=== PATIENT | female | born 1985 | race American Indian/Alaskan Native ===

== ENCOUNTER 2020-10-01 15:52 | Outpatient (CLI) | payer OTHER ==
[2020-10-01 16:46] VITALS: BP 125/72
== END 2020-10-01 17:27 | disposition home or self-care (01) ==
LOC: TRG 15:52 → APU 15:52 → TRG 17:27
PROVIDERS: ATTEND Obstetrics & Gynecology
DX: Z34.93 Encounter for supervision of normal pregnancy, unspecified, third trimester (principal); Z3A.39 39 weeks gestation of pregnancy
CPT/HCPCS: 59025

== ENCOUNTER 2020-10-04 16:38 | Outpatient (CLI) | payer OTHER ==
[2020-10-04 18:17] VITALS: BP 126/83
--- NOTE | 2020-10-04 20:45 | Ultrasound Report ---
ULTRASOUND BIOPHYSICAL PROFILE INDICATION: well being. COMPARISON: None available. FINDINGS: BREATHING MOVEMENT = 2 GROSS BODY MOVEMENT = 2 TONE = 2 QUALITATIVE AMNIOTIC FLUID VOLUME = 2 TOTAL BIOPHYSICAL SCORE = 12/30 AMNIOTIC FLUID INDEX (cm) = 13.7 PRESENTATION: Cephalic. HEART RATE (beats per minute): 123 IMPRESSION: 1. biophysical profile = 12/30 Signer Name: Navi Morales MD Signed: 10/04/2020 8:40 PM Workstation Name: [id number]
--- NOTE | 2020-10-05 07:17 | Ultrasound Report ---
ULTRASOUND BIOPHYSICAL PROFILE INDICATION: well being. COMPARISON: None available. FINDINGS: BREATHING MOVEMENT = 2 GROSS BODY MOVEMENT = 2 TONE = 2 QUALITATIVE AMNIOTIC FLUID VOLUME = 2 TOTAL BIOPHYSICAL SCORE = 8/8 IMPRESSION: 1. biophysical profile = 12/30 Signer Name: Cade Fontenot MD Signed: 10/05/2020 7:13 AM Workstation Name: [id number]
== END 2020-10-04 20:20 | disposition home or self-care (01) ==
LOC: TRG 16:38 → APU 16:41 → TRG 20:20
DX: Z34.93 Encounter for supervision of normal pregnancy, unspecified, third trimester (principal); Z3A.40 40 weeks gestation of pregnancy
CPT/HCPCS: 59025; 76815; 76816; 76819

== ENCOUNTER 2020-10-10 21:17 | Inpatient (IN) | payer OTHER ==
[2020-10-10] MEDS ORDERED: ACETAMINOPHEN 325 MG TAB PO PRN (23:42)
[2020-10-10] MEDS ORDERED: miSOPROStol 200 MCG TAB PR PRN (23:42)
[2020-10-10] MEDS ORDERED: MINERAL OIL 30 ML ORAL LIQD PO PRN (23:42)
[2020-10-10] MEDS ORDERED: AMPICILLIN/NS 2 GM/100 ML 2 GM/100 ML BAG IV ONE (23:42)
[2020-10-10] MEDS ORDERED: BUTORPHANOL 2 MG/1 ML INJ IV PRN (23:42)
[2020-10-10] MEDS ORDERED: ePHEDrine SULFATE 50 MG/1 ML INJ IV PRN (23:42)
[2020-10-10] MEDS ORDERED: ONDANSETRON 4 MG/2 ML INJ IV PRN (23:42)
[2020-10-10] MEDS ORDERED: TERBUTALINE 1 MG/1 ML INJ SUB-Q PRN (23:42)
[2020-10-10] MEDS ORDERED: LIDOCAINE (2%) 20 MG/1 ML VIAL 20 ML MDV INFILTRATI ONE (23:42)
[2020-10-10] MEDS ORDERED: NALOXONE 0.4 MG/1 ML INJ IV PRN (23:42)
[2020-10-10] MEDS ORDERED: OXYTOCIN DRIP 30 UNITS/500 ML BAG IV SCH (23:45)
--- NOTE | 2020-10-11 00:04 | History and Physical Report ---
History of Present Illness Date of examination: 10/10/20 Date of admission: 10/10/2020 Chief complaint: Presents for a scheduled Postdates Induction of Labor History of present illness: Early entry to care, co-managed with [facility], course complicated by a Hx of Epilepsy (non-compliant with Neurology Consult); Maternal Obesity; a UTI (treated with Macrobid); Trichomonas (treated with Negative RALPH); and Vitamin D Deficiency (PO Supplementation). Past History Past Medical History: asthma, neurologic (Epilepsy), seizure Past Surgical History: [employer]/uterine surgery (Elective ) [employer] History: trichomonas Family/Genetic History: diabetes (MGF and PGF), hypertension (Father), cancer (Breast CA: Aunt) Social history: no significant social history, single - Obstetrical History Expected Date of Delivery: 10/04/20 Actual Gestation: 40 Week(s) 6 Day(s) : 6 Para: 1 Hx # Term Pregnancies: 1 Spontaneous Abortions: 6 Induced : 1 Number of Living Children: 1 #1 Gender: Female year: 4,[birth year] Birthweight: 2.92 kg Method of Delivery: Vaginal Gestational age at delivery: 42 Complications: none Medications and Allergies Allergies Allergy/AdvReac Type Severity Reaction Status Date / Time No Known Allergies Allergy Verified 10/04/20 17:55 Home Medications Medication Instructions Recorded Confirmed Last Taken Type No Known Home Medications [No 10/10/20 10/10/20 Unknown History Reported Home Medications] Active Meds: Active Medications Acetaminophen (Acetaminophen 325 Mg Tab) 650 mg PO Q4H PRN PRN Reason: Pain, Mild (1-3) Butorphanol Tartrate (Butorphanol 2 Mg/1 Ml Inj) 2 mg IV Q2H PRN PRN Reason: Pain , Severe (7-10) Ephedrine Sulfate (Ephedrine Sulfate 50 Mg/1 Ml Inj) 10 mg IV Q2M PRN PRN Reason: Hypotension Oxytocin/Sodium Chloride (Pitocin/Ns 30 Unit/500ml) 30 units in 500 mls @ 4 mls/hr IV TITR ALOK; Protocol Lactated Ringer's (Lactated Ringers) 1,000 mls @ 125 mls/hr IV DIRECT ALOK Oxytocin/Sodium Chloride (Pitocin/Ns 30 Unit/500ml) 30 units in 500 mls @ 40 mls/hr IV TITR ALOK; Protocol Ampicillin Sodium (Ampicillin/Ns 2 Gm/100 Ml) 2 gm in 100 mls @ 100 mls/hr IV ONCE ONE; Protocol Stop: 10/11/20 00:41 Ampicillin Sodium (Ampicillin/Ns 1 Gm/50 Ml) 1 gm in 50 mls @ 100 mls/hr IV Q4H [facility]; Protocol Lidocaine (Lidocaine (2%) 20 Mg/1 Ml Vial 20 Ml Mdv) 20 ml INFILTRATI ONCE ONE Stop: 10/10/20 23:43 Mineral Oil (Mineral Oil 30 Ml Oral Liqd) 30 ml PO QHS PRN PRN Reason: Constipation Misoprostol (Misoprostol 200 Mcg Tab) 800 mcg MI ONCE PRN PRN Reason: Uterine Bleeding Naloxone HCl (Naloxone 0.4 Mg/1 Ml Inj) 0.1 mg IV Q2MIN PRN PRN Reason: Res Rate </= 8 or 02 SAT < 92% Ondansetron HCl (Ondansetron 4 Mg/2 Ml Inj) 4 mg IV Q8H PRN PRN Reason: Nausea And Vomiting Terbutaline Sulfate (Terbutaline 1 Mg/1 Ml Inj) 0.25 mg SUB-Q ONCE PRN PRN Reason: Hyperstimulation/Hypertonicity Review of Systems All systems: negative - Vital Signs Vital signs: Vital Signs Pulse BP 90 115/74 10/10/20 22:33 10/10/20 22:33 Temp Pulse Resp BP Pulse Ox 99.1 F 84 18 133/72 100 10/10/20 22:47 10/10/20 23:44 10/10/20 22:47 10/10/20 23:13 10/10/20 23:44 - Physical Exam Breasts: Positive: normal Cardiovascular: Regular rate Lungs: Positive: Clear to auscultation, Normal air movement Abdomen: Positive: normal appearance, soft, normal bowel sounds Genitourinary (Female): Positive: normal external genitalia, normal perenium Vagina: Positive: normal moisture Uterus: Positive: enlarged Anus/Rectum: Positive: normal perianal skin Extremities: Positive: edema (+2 bilateral pedal) - Obstetrical FHR: category 1 Uterine Contraction Monitor Mode: External Cervical Dilatation: 2 (vtx; Intact) Cervical Effacement Percentage: 40 station: -3 Uterine Contraction Pattern: Irregular Uterine Tone Measurement Phase: Resting Uterine Contraction Intensity: Mild Results All other labs normal. Assessment and Plan A: IUP @ 40 6/7 Weeks Category I Tracing Epilepsy Maternal Obesity GBS Negative P: Admit Per Routine Orders Low Dose Pitocin Induction Cook's Cervical Ripening Balloon Placed
[2020-10-11 00:27] LABS: Hematocrit 32.9 % (30.3-42.9); Hemoglobin 10.9 gm/dl (10.1-14.3); Mean Corpuscular HGB Conc 33 % (30-34); Mean Corpuscular Volume 88 fl (79-97); Platelet Count 218 K/mm3 (140-440); Red Blood Count 3.72 M/mm3 (3.65-5.03)
[2020-10-11] MEDS: LACTATED RINGERS 1,000 ML IV SCH ×3 (00:30→15:26)
[2020-10-11] MEDS: OXYTOCIN DRIP 30 UNITS/500 ML BAG IV SCH ×2 (00:30→08:03)
[2020-10-11] MEDS ORDERED: BUTORPHANOL 2 MG/1 ML INJ IV PRN (01:35)
[2020-10-11] MEDS ORDERED: AMPICILLIN/NS 1 GM/50 ML 1 GM/50 ML BAG IV SCH (04:00)
[2020-10-11] MEDS ORDERED: NALOXONE 2 MG/2 ML INJ IV PRN (06:21)
[2020-10-11] MEDS ORDERED: ePHEDrine SULFATE 50 MG/1 ML INJ IV PRN (06:21)
--- NOTE | 2020-10-11 06:21 | Anesthesia Consultation ---
Anesthesia Consult and Med Hx Date of service: 10/11/20 - Airway Anesthetic Teeth Evaluation: Good ROM Head & Neck: Adequate Mental/Hyoid Distance: Adequate Mallampati Class: Class II Intubation Access Assessment: Probably Good - Pulmonary Exam CTA: Yes - Cardiac Exam Cardiac Exam: RRR - Pre-Operative Health Status ASA Pre-Surgery Classification: ASA3 Proposed Anesthetic Plan: Epidural - Pulmonary Hx Asthma: Yes - Cardiovascular System Hx Hypertension: No - Central Nervous System Hx Seizures: Yes Hx Psychiatric Problems: No - Endocrine Hx Renal Disease: No Hx Hypothyroidism: No Hx Hyperthyroidism: No - Hematic Hx Anemia: No Hx Sickle Cell Disease: No - Other Systems Hx Alcohol Use: Yes Hx Obesity: Yes
--- NOTE | 2020-10-11 06:47 | Progress Note ---
Labor Epidural - Labor Epidural Start Time: 06:29 Stop Time: 06:36 Performed by:: CHELITA DIANE Procedure: Patient is requesting epidural for labor pain. H&P, and labs reviewed. Procedure explained, questions answered, consent obtained. Patient in sitting position with blood pressure cuff and pulse ox on and working. Timeout performed immediately before start of procedure. Sterile chlorahexadine 0.5% prep/drape. 3 mL 1% lidocaine skin wheal at L[3]-L[4]. 18-gauge Samanta [place] epidural needle advanced to [id number] with saline at 9 cm. 27-gauge spinal needle advanced until clear, free-flowing CSF. Intrathecal dexmedetomidine [5] mcg administered and needle removed. Epidural catheter advanced to 15 cm, negative aspiration for blood and csf, negative test dose 3 ml 1.5% lidocaine with epinephrine. Sterile steri-strips and tegaderm applied, followed by tape reinforcement. Patient tolerated procedure well.
[2020-10-11] MEDS: fentaNYL-BUPIV 2 MCG/ML-0.125% 200 MCG/100 ML BAG EPIDURAL SCH ×2 (07:46→15:26)
--- NOTE | 2020-10-11 09:33 | Progress Note ---
Assessment and Plan A: IUP@ 41 wks Hx of Epilespy P: Continue monitoring Continue Pitocin per protocol Seizure prec Anticipate Subjective - Subjective Date of service: 10/11/20 Principal diagnosis: IUP@ term Patient reports: movement normal Objective - Vital Signs Vital Signs: Vital Signs - 12hr 10/10/20 10/10/20 10/10/20 22:33 22:47 22:48 Temperature 99.1 F Pulse Rate 90 90 87 Respiratory 18 Rate Blood Pressure 115/74 Blood Pressure 115/74 [Left] O2 Sat by Pulse 99 98 Oximetry 10/10/20 10/10/20 10/10/20 22:53 22:58 23:03 Temperature Pulse Rate 86 81 82 Respiratory Rate Blood Pressure Blood Pressure [Left] O2 Sat by Pulse 99 99 100 Oximetry 10/10/20 10/10/20 10/10/20 23:08 23:13 23:18 Temperature Pulse Rate 84 97 H 89 Respiratory Rate Blood Pressure 133/72 Blood Pressure [Left] O2 Sat by Pulse 99 99 99 Oximetry 10/10/20 10/10/20 10/10/20 23:23 23:28 23:33 Temperature Pulse Rate 102 H 102 H 82 Respiratory Rate Blood Pressure Blood Pressure [Left] O2 Sat by Pulse 98 97 98 Oximetry 10/10/20 10/10/20 10/10/20 23:35 23:39 23:44 Temperature Pulse Rate 60 68 84 Respiratory Rate Blood Pressure Blood Pressure [Left] O2 Sat by Pulse 85 50 L 100 Oximetry 10/10/20 10/10/20 10/10/20 23:49 23:54 23:59 Temperature Pulse Rate 90 85 86 Respiratory Rate Blood Pressure Blood Pressure [Left] O2 Sat by Pulse 99 100 100 Oximetry 10/11/20 10/11/20 10/11/20 00:04 00:09 00:14 Temperature Pulse Rate 80 78 83 Respiratory Rate Blood Pressure Blood Pressure [Left] O2 Sat by Pulse 100 100 100 Oximetry 10/11/20 10/11/20 10/11/20 00:19 00:24 00:29 Temperature Pulse Rate 82 82 83 Respiratory Rate Blood Pressure Blood Pressure [Left] O2 Sat by Pulse 99 100 100 Oximetry 10/11/20 10/11/20 10/11/20 00:34 00:39 00:44 Temperature Pulse Rate 78 79 79 Respiratory Rate Blood Pressure Blood Pressure [Left] O2 Sat by Pulse 100 100 100 Oximetry 10/11/20 10/11/20 10/11/20 00:47 00:50 00:55 Temperature Pulse Rate 71 82 88 Respiratory Rate Blood Pressure Blood Pressure [Left] O2 Sat by Pulse 94 98 97 Oximetry 10/11/20 10/11/20 10/11/20 01:00 01:05 01:10 Temperature Pulse Rate 83 87 80 Respiratory Rate Blood Pressure Blood Pressure [Left] O2 Sat by Pulse 100 100 98 Oximetry 10/11/20 10/11/20 10/11/20 01:15 01:20 01:25 Temperature Pulse Rate 89 80 75 Respiratory Rate Blood Pressure Blood Pressure [Left] O2 Sat by Pulse 97 99 98 Oximetry 10/11/20 10/11/20 10/11/20 01:30 01:31 01:35 Temperature Pulse Rate 91 H 83 85 Respiratory Rate Blood Pressure 129/70 Blood Pressure [Left] O2 Sat by Pulse 97 99 Oximetry 10/11/20 10/11/20 10/11/20 01:40 01:45 01:50 Temperature Pulse Rate 82 90 100 H Respiratory Rate Blood Pressure Blood Pressure [Left] O2 Sat by Pulse 97 99 99 Oximetry 10/11/20 10/11/20 10/11/20 01:55 02:00 02:05 Temperature Pulse Rate 94 H 85 95 H Respiratory Rate Blood Pressure Blood Pressure [Left] O2 Sat by Pulse 95 96 95 Oximetry 10/11/20 10/11/20 10/11/20 02:06 02:10 02:15 Temperature Pulse Rate 96 H 86 84 Respiratory Rate Blood Pressure Blood Pressure [Left] O2 Sat by Pulse 94 95 96 Oximetry 10/11/20 10/11/20 10/11/20 02:20 02:25 02:30 Temperature Pulse Rate 89 89 103 H Respiratory Rate Blood Pressure Blood Pressure [Left] O2 Sat by Pulse 96 95 96 Oximetry 10/11/20 10/11/20 10/11/20 02:32 02:35 02:40 Temperature Pulse Rate 93 H 84 95 H Respiratory Rate Blood Pressure 132/73 Blood Pressure [Left] O2 Sat by Pulse 98 97 Oximetry 10/11/20 10/11/20 10/11/20 02:45 02:50 02:55 Temperature Pulse Rate 81 89 94 H Respiratory Rate Blood Pressure Blood Pressure [Left] O2 Sat by Pulse 98 100 98 Oximetry 05/20/21 05/20/21 05/20/21 03:00 03:05 03:10 Temperature Pulse Rate 88 91 H 90 Respiratory Rate Blood Pressure Blood Pressure [Left] O2 Sat by Pulse 99 97 97 Oximetry 10/11/20 10/11/20 10/11/20 03:15 03:20 03:25 Temperature Pulse Rate 90 93 H 92 H Respiratory Rate Blood Pressure Blood Pressure [Left] O2 Sat by Pulse 99 98 98 Oximetry 10/11/20 10/11/20 10/11/20 03:30 03:32 03:35 Temperature Pulse Rate 92 H 93 H 97 H Respiratory Rate Blood Pressure 113/55 Blood Pressure [Left] O2 Sat by Pulse 100 98 Oximetry 10/11/20 10/11/20 10/11/20 03:59 04:04 04:09 Temperature Pulse Rate 94 H 105 H 103 H Respiratory Rate Blood Pressure Blood Pressure [Left] O2 Sat by Pulse 98 98 97 Oximetry 10/11/20 10/11/20 10/11/20 04:14 04:19 04:24 Temperature Pulse Rate 98 H 95 H 83 Respiratory Rate Blood Pressure Blood Pressure [Left] O2 Sat by Pulse 98 98 98 Oximetry 10/11/20 10/11/20 10/11/20 04:29 04:32 04:34 Temperature Pulse Rate 93 H 97 H 98 H Respiratory Rate Blood Pressure 110/65 Blood Pressure [Left] O2 Sat by Pulse 97 97 Oximetry 10/11/20 10/11/20 10/11/20 04:39 04:44 04:49 Temperature Pulse Rate 91 H 87 92 H Respiratory Rate Blood Pressure Blood Pressure [Left] O2 Sat by Pulse 98 98 96 Oximetry 10/11/20 10/11/20 10/11/20 04:50 04:54 04:59 Temperature Pulse Rate 95 H 101 H 103 H Respiratory Rate Blood Pressure Blood Pressure [Left] O2 Sat by Pulse 90 100 100 Oximetry 10/11/20 10/11/20 10/11/20 05:05 05:10 05:15 Temperature Pulse Rate 48 L 115 H 103 H Respiratory Rate Blood Pressure Blood Pressure [Left] O2 Sat by Pulse 100 98 99 Oximetry 10/11/20 10/11/20 10/11/20 05:18 05:20 05:25 Temperature Pulse Rate 56 L 106 H 102 H Respiratory Rate Blood Pressure Blood Pressure [Left] O2 Sat by Pulse 87 100 100 Oximetry 10/11/20 10/11/20 10/11/20 05:30 05:35 05:39 Temperature Pulse Rate 111 H 107 H 119 H Respiratory Rate Blood Pressure Blood Pressure [Left] O2 Sat by Pulse 100 100 93 Oximetry 10/11/20 10/11/20 10/11/20 05:40 05:53 05:58 Temperature Pulse Rate 122 H 99 H 98 H Respiratory Rate Blood Pressure Blood Pressure [Left] O2 Sat by Pulse 99 100 98 Oximetry 10/11/20 10/11/20 10/11/20 06:03 06:08 06:11 Temperature Pulse Rate 98 H 101 H 105 H Respiratory Rate Blood Pressure 116/64 Blood Pressure [Left] O2 Sat by Pulse 99 98 Oximetry 10/11/20 10/11/20 10/11/20 06:12 06:13 06:18 Temperature 98.0 F Pulse Rate 98 H 101 H 94 H Respiratory 14 Rate Blood Pressure Blood Pressure 116/64 [Left] O2 Sat by Pulse 99 97 99 Oximetry 10/11/20 10/11/20 10/11/20 06:23 06:28 06:31 Temperature Pulse Rate 99 H 111 H 100 H Respiratory Rate Blood Pressure 109/56 Blood Pressure [Left] O2 Sat by Pulse 98 98 Oximetry 10/11/20 10/11/20 10/11/20 06:33 06:38 06:41 Temperature Pulse Rate 98 H 96 H 102 H Respiratory Rate Blood Pressure 111/61 Blood Pressure [Left] O2 Sat by Pulse 99 100 Oximetry 10/11/20 10/11/20 10/11/20 06:43 06:44 06:46 Temperature Pulse Rate 97 H 95 H 86 Respiratory Rate Blood Pressure 87/47 86/49 Blood Pressure [Left] O2 Sat by Pulse 98 Oximetry 10/11/20 10/11/20 10/11/20 06:48 06:49 06:50 Temperature Pulse Rate 96 H 107 H 122 H Respiratory Rate Blood Pressure 79/43 83/50 86/60 Blood Pressure [Left] O2 Sat by Pulse 100 Oximetry 10/11/20 10/11/20 10/11/20 06:52 06:53 06:54 Temperature Pulse Rate 87 111 H 117 H Respiratory Rate Blood Pressure 140/76 111/55 Blood Pressure [Left] O2 Sat by Pulse 100 Oximetry 10/11/20 10/11/20 10/11/20 06:56 06:58 07:00 Temperature Pulse Rate 121 H 106 H 102 H Respiratory Rate Blood Pressure 97/51 88/53 80/41 Blood Pressure [Left] O2 Sat by Pulse 98 Oximetry 10/11/20 10/11/20 10/11/20 07:03 07:07 07:08 Temperature Pulse Rate 86 101 H Respiratory Rate Blood Pressure 105/57 166/90 Blood Pressure [Left] O2 Sat by Pulse 96 98 Oximetry 10/11/20 10/11/20 10/11/20 07:09 07:13 07:18 Temperature Pulse Rate 107 H 77 77 Respiratory Rate Blood Pressure 167/77 Blood Pressure [Left] O2 Sat by Pulse 98 97 Oximetry 10/11/20 10/11/20 10/11/20 07:22 07:23 07:24 Temperature 98.1 F Pulse Rate 75 98 H 107 H Respiratory 18 Rate Blood Pressure 134/67 Blood Pressure 134/67 [Left] O2 Sat by Pulse 97 96 Oximetry 10/11/20 10/11/20 10/11/20 07:28 07:30 07:33 Temperature Pulse Rate 102 H 68 84 Respiratory Rate Blood Pressure Blood Pressure [Left] O2 Sat by Pulse 96 93 98 Oximetry 10/11/20 10/11/20 10/11/20 07:38 07:40 07:43 Temperature Pulse Rate 81 92 H 91 H Respiratory Rate Blood Pressure 120/63 Blood Pressure [Left] O2 Sat by Pulse 98 97 Oximetry 10/11/20 10/11/20 10/11/20 07:48 07:50 07:53 Temperature Pulse Rate 98 H 96 H 89 Respiratory Rate Blood Pressure 107/56 Blood Pressure [Left] O2 Sat by Pulse 98 97 Oximetry 10/11/20 10/11/20 10/11/20 07:58 08:00 08:03 Temperature Pulse Rate 80 78 93 H Respiratory Rate Blood Pressure 116/60 Blood Pressure [Left] O2 Sat by Pulse 98 98 Oximetry 10/11/20 10/11/20 10/11/20 08:08 08:13 08:18 Temperature Pulse Rate 72 92 H 88 Respiratory Rate Blood Pressure Blood Pressure [Left] O2 Sat by Pulse 99 97 98 Oximetry 10/11/20 10/11/20 10/11/20 08:23 08:28 08:33 Temperature Pulse Rate 89 93 H 76 Respiratory Rate Blood Pressure 100/58 Blood Pressure [Left] O2 Sat by Pulse 98 97 98 Oximetry 10/11/20 10/11/20 10/11/20 08:38 08:39 08:43 Temperature Pulse Rate 74 76 75 Respiratory Rate Blood Pressure 113/67 Blood Pressure [Left] O2 Sat by Pulse 99 97 Oximetry 10/11/20 10/11/20 10/11/20 08:48 08:53 08:58 Temperature Pulse Rate 89 81 75 Respiratory Rate Blood Pressure 107/59 Blood Pressure [Left] O2 Sat by Pulse 97 97 99 Oximetry 10/11/20 10/11/20 10/11/20 09:03 09:08 09:13 Temperature Pulse Rate 85 102 H 86 Respiratory Rate Blood Pressure 100/55 Blood Pressure [Left] O2 Sat by Pulse 99 99 99 Oximetry 10/11/20 10/11/20 09:18 09:23 Temperature Pulse Rate 81 76 Respiratory Rate Blood Pressure 101/59 Blood Pressure [Left] O2 Sat by Pulse 99 99 Oximetry - Exam Breasts: normal Abdomen: Present: normal appearance, soft, normal bowel sounds Vulva: both: normal Uterus: Present: normal FHR: auscultation normal, category 1 Uterine Contraction Monitor Mode: External Cervical Dilatation: 6 (per urse) Cervical Effacement Percentage: 70 (per nurse) station: 3 Uterine Contraction Pattern: Irregular Uterine Tone Measurement Phase: Resting Uterine Contraction Intensity: Mild Extremities: normal - Labs Labs: Abnormal Labs 10/11/20 00:08 WBC 11.3 H Laboratory Results - last 24 hr 10/11/20 10/11/20 00:08 01:09 WBC 11.3 H RBC 3.72 Hgb 10.9 Hct 32.9 MCV 88 MCH 29 MCHC 33 RDW 15.0 Plt Count 218 Blood Type A POSITIVE Antibody Screen Negative
--- NOTE | 2020-10-11 09:57 | Progress Note ---
Assessment and Plan A: IUP @ 41 Weeks Category I Tracing Active Labor Epilepsy Maternal Obesity GBS Negative P: AROM Continue Pitocin Augmentation Internals x 2 Subjective - Subjective Date of service: 10/11/20 Principal diagnosis: IUP@ term Interval history: Early entry to care, co-managed with [facility], course complicated by a Hx of Epilepsy (non-compliant with Neurology Consult); Maternal Obesity; a UTI (treated with Macrobid); Trichomonas (treated with Negative RALPH); and Vitamin D Deficiency (PO Supplementation). Patient reports: movement normal, other (Resting well under epidural anesthesia) Objective - Vital Signs Vital Signs: Vital Signs - 12hr 10/10/20 10/10/20 10/10/20 22:33 22:47 22:48 Temperature 99.1 F Pulse Rate 90 90 87 Respiratory 18 Rate Blood Pressure 115/74 Blood Pressure 115/74 [Left] O2 Sat by Pulse 99 98 Oximetry 10/10/20 10/10/20 10/10/20 22:53 22:58 23:03 Temperature Pulse Rate 86 81 82 Respiratory Rate Blood Pressure Blood Pressure [Left] O2 Sat by Pulse 99 99 100 Oximetry 10/10/20 10/10/20 10/10/20 23:08 23:13 23:18 Temperature Pulse Rate 84 97 H 89 Respiratory Rate Blood Pressure 133/72 Blood Pressure [Left] O2 Sat by Pulse 99 99 99 Oximetry 10/10/20 10/10/20 10/10/20 23:23 23:28 23:33 Temperature Pulse Rate 102 H 102 H 82 Respiratory Rate Blood Pressure Blood Pressure [Left] O2 Sat by Pulse 98 97 98 Oximetry 10/10/20 10/10/20 10/10/20 23:35 23:39 23:44 Temperature Pulse Rate 60 68 84 Respiratory Rate Blood Pressure Blood Pressure [Left] O2 Sat by Pulse 85 50 L 100 Oximetry 10/10/20 10/10/20 10/10/20 23:49 23:54 23:59 Temperature Pulse Rate 90 85 86 Respiratory Rate Blood Pressure Blood Pressure [Left] O2 Sat by Pulse 99 100 100 Oximetry 10/11/20 10/11/20 10/11/20 00:04 00:09 00:14 Temperature Pulse Rate 80 78 83 Respiratory Rate Blood Pressure Blood Pressure [Left] O2 Sat by Pulse 100 100 100 Oximetry 10/11/20 10/11/20 10/11/20 00:19 00:24 00:29 Temperature Pulse Rate 82 82 83 Respiratory Rate Blood Pressure Blood Pressure [Left] O2 Sat by Pulse 99 100 100 Oximetry 10/11/20 10/11/20 10/11/20 00:34 00:39 00:44 Temperature Pulse Rate 78 79 79 Respiratory Rate Blood Pressure Blood Pressure [Left] O2 Sat by Pulse 100 100 100 Oximetry 10/11/20 10/11/20 10/11/20 00:47 00:50 00:55 Temperature Pulse Rate 71 82 88 Respiratory Rate Blood Pressure Blood Pressure [Left] O2 Sat by Pulse 94 98 97 Oximetry 10/11/20 10/11/20 10/11/20 01:00 01:05 01:10 Temperature Pulse Rate 83 87 80 Respiratory Rate Blood Pressure Blood Pressure [Left] O2 Sat by Pulse 100 100 98 Oximetry 10/11/20 10/11/20 10/11/20 01:15 01:20 01:25 Temperature Pulse Rate 89 80 75 Respiratory Rate Blood Pressure Blood Pressure [Left] O2 Sat by Pulse 97 99 98 Oximetry 10/11/20 10/11/20 10/11/20 01:30 01:31 01:35 Temperature Pulse Rate 91 H 83 85 Respiratory Rate Blood Pressure 129/70 Blood Pressure [Left] O2 Sat by Pulse 97 99 Oximetry 10/11/20 10/11/20 10/11/20 01:40 01:45 01:50 Temperature Pulse Rate 82 90 100 H Respiratory Rate Blood Pressure Blood Pressure [Left] O2 Sat by Pulse 97 99 99 Oximetry 10/11/20 10/11/20 10/11/20 01:55 02:00 02:05 Temperature Pulse Rate 94 H 85 95 H Respiratory Rate Blood Pressure Blood Pressure [Left] O2 Sat by Pulse 95 96 95 Oximetry 10/11/20 10/11/20 10/11/20 02:06 02:10 02:15 Temperature Pulse Rate 96 H 86 84 Respiratory Rate Blood Pressure Blood Pressure [Left] O2 Sat by Pulse 94 95 96 Oximetry 10/11/20 10/11/20 10/11/20 02:20 02:25 02:30 Temperature Pulse Rate 89 89 103 H Respiratory Rate Blood Pressure Blood Pressure [Left] O2 Sat by Pulse 96 95 96 Oximetry 10/11/20 10/11/20 10/11/20 02:32 02:35 02:40 Temperature Pulse Rate 93 H 84 95 H Respiratory Rate Blood Pressure 132/73 Blood Pressure [Left] O2 Sat by Pulse 98 97 Oximetry 10/11/20 10/11/20 10/11/20 02:45 02:50 02:55 Temperature Pulse Rate 81 89 94 H Respiratory Rate Blood Pressure Blood Pressure [Left] O2 Sat by Pulse 98 100 98 Oximetry 10/11/20 10/11/20 10/11/20 03:00 03:05 03:10 Temperature Pulse Rate 88 91 H 90 Respiratory Rate Blood Pressure Blood Pressure [Left] O2 Sat by Pulse 99 97 97 Oximetry 10/11/20 10/11/20 10/11/20 03:15 03:20 03:25 Temperature Pulse Rate 90 93 H 92 H Respiratory Rate Blood Pressure Blood Pressure [Left] O2 Sat by Pulse 99 98 98 Oximetry 10/11/20 10/11/20 10/11/20 03:30 03:32 03:35 Temperature Pulse Rate 92 H 93 H 97 H Respiratory Rate Blood Pressure 113/55 Blood Pressure [Left] O2 Sat by Pulse 100 98 Oximetry 10/11/20 10/11/20 10/11/20 03:59 04:04 04:09 Temperature Pulse Rate 94 H 105 H 103 H Respiratory Rate Blood Pressure Blood Pressure [Left] O2 Sat by Pulse 98 98 97 Oximetry 10/11/20 10/11/20 10/11/20 04:14 04:19 04:24 Temperature Pulse Rate 98 H 95 H 83 Respiratory Rate Blood Pressure Blood Pressure [Left] O2 Sat by Pulse 98 98 98 Oximetry 10/11/20 10/11/20 10/11/20 04:29 04:32 04:34 Temperature Pulse Rate 93 H 97 H 98 H Respiratory Rate Blood Pressure 110/65 Blood Pressure [Left] O2 Sat by Pulse 97 97 Oximetry 10/11/20 10/11/20 10/11/20 04:39 04:44 04:49 Temperature Pulse Rate 91 H 87 92 H Respiratory Rate Blood Pressure Blood Pressure [Left] O2 Sat by Pulse 98 98 96 Oximetry 10/11/20 10/11/20 10/11/20 04:50 04:54 04:59 Temperature Pulse Rate 95 H 101 H 103 H Respiratory Rate Blood Pressure Blood Pressure [Left] O2 Sat by Pulse 90 100 100 Oximetry 10/11/20 10/11/20 10/11/20 05:05 05:10 05:15 Temperature Pulse Rate 48 L 115 H 103 H Respiratory Rate Blood Pressure Blood Pressure [Left] O2 Sat by Pulse 100 98 99 Oximetry 10/11/20 10/11/20 10/11/20 05:18 05:20 05:25 Temperature Pulse Rate 56 L 106 H 102 H Respiratory Rate Blood Pressure Blood Pressure [Left] O2 Sat by Pulse 87 100 100 Oximetry 10/11/20 10/11/20 10/11/20 05:30 05:35 05:39 Temperature Pulse Rate 111 H 107 H 119 H Respiratory Rate Blood Pressure Blood Pressure [Left] O2 Sat by Pulse 100 100 93 Oximetry 10/11/20 10/11/20 10/11/20 05:40 05:53 05:58 Temperature Pulse Rate 122 H 99 H 98 H Respiratory Rate Blood Pressure Blood Pressure [Left] O2 Sat by Pulse 99 100 98 Oximetry 10/11/20 10/11/20 10/11/20 06:03 06:08 06:11 Temperature Pulse Rate 98 H 101 H 105 H Respiratory Rate Blood Pressure 116/64 Blood Pressure [Left] O2 Sat by Pulse 99 98 Oximetry 10/11/20 10/11/20 10/11/20 06:12 06:13 06:18 Temperature 98.0 F Pulse Rate 98 H 101 H 94 H Respiratory 14 Rate Blood Pressure Blood Pressure 116/64 [Left] O2 Sat by Pulse 99 97 99 Oximetry 10/11/20 10/11/20 10/11/20 06:23 06:28 06:31 Temperature Pulse Rate 99 H 111 H 100 H Respiratory Rate Blood Pressure 109/56 Blood Pressure [Left] O2 Sat by Pulse 98 98 Oximetry 10/11/20 10/11/20 10/11/20 06:33 06:38 06:41 Temperature Pulse Rate 98 H 96 H 102 H Respiratory Rate Blood Pressure 111/61 Blood Pressure [Left] O2 Sat by Pulse 99 100 Oximetry 10/11/20 10/11/20 10/11/20 06:43 06:44 06:46 Temperature Pulse Rate 97 H 95 H 86 Respiratory Rate Blood Pressure 87/47 86/49 Blood Pressure [Left] O2 Sat by Pulse 98 Oximetry 10/11/20 10/11/20 10/11/20 06:48 06:49 06:50 Temperature Pulse Rate 96 H 107 H 122 H Respiratory Rate Blood Pressure 79/43 83/50 86/60 Blood Pressure [Left] O2 Sat by Pulse 100 Oximetry 10/11/20 10/11/20 10/11/20 06:52 06:53 06:54 Temperature Pulse Rate 87 111 H 117 H Respiratory Rate Blood Pressure 140/76 111/55 Blood Pressure [Left] O2 Sat by Pulse 100 Oximetry 10/11/20 10/11/20 10/11/20 06:56 06:58 07:00 Temperature Pulse Rate 121 H 106 H 102 H Respiratory Rate Blood Pressure 97/51 88/53 80/41 Blood Pressure [Left] O2 Sat by Pulse 98 Oximetry 10/11/20 10/11/20 10/11/20 07:03 07:07 07:08 Temperature Pulse Rate 86 101 H Respiratory Rate Blood Pressure 105/57 166/90 Blood Pressure [Left] O2 Sat by Pulse 96 98 Oximetry 10/11/20 10/11/20 10/11/20 07:09 07:13 07:18 Temperature Pulse Rate 107 H 77 77 Respiratory Rate Blood Pressure 167/77 Blood Pressure [Left] O2 Sat by Pulse 98 97 Oximetry 10/11/20 10/11/20 10/11/20 07:22 07:23 07:24 Temperature 98.1 F Pulse Rate 75 98 H 107 H Respiratory 18 Rate Blood Pressure 134/67 Blood Pressure 134/67 [Left] O2 Sat by Pulse 97 96 Oximetry 10/11/20 10/11/20 10/11/20 07:28 07:30 07:33 Temperature Pulse Rate 102 H 68 84 Respiratory Rate Blood Pressure Blood Pressure [Left] O2 Sat by Pulse 96 93 98 Oximetry 10/11/20 10/11/20 10/11/20 07:38 07:40 07:43 Temperature Pulse Rate 81 92 H 91 H Respiratory Rate Blood Pressure 120/63 Blood Pressure [Left] O2 Sat by Pulse 98 97 Oximetry 10/11/20 10/11/20 10/11/20 07:48 07:50 07:53 Temperature Pulse Rate 98 H 96 H 89 Respiratory Rate Blood Pressure 107/56 Blood Pressure [Left] O2 Sat by Pulse 98 97 Oximetry 10/11/20 10/11/20 10/11/20 07:58 08:00 08:03 Temperature Pulse Rate 80 78 93 H Respiratory Rate Blood Pressure 116/60 Blood Pressure [Left] O2 Sat by Pulse 98 98 Oximetry 10/11/20 10/11/20 10/11/20 08:08 08:13 08:18 Temperature Pulse Rate 72 92 H 88 Respiratory Rate Blood Pressure Blood Pressure [Left] O2 Sat by Pulse 99 97 98 Oximetry 10/11/20 10/11/20 10/11/20 08:23 08:28 08:33 Temperature Pulse Rate 89 93 H 76 Respiratory Rate Blood Pressure 100/58 Blood Pressure [Left] O2 Sat by Pulse 98 97 98 Oximetry 10/11/20 10/11/20 10/11/20 08:38 08:39 08:43 Temperature Pulse Rate 74 76 75 Respiratory Rate Blood Pressure 113/67 Blood Pressure [Left] O2 Sat by Pulse 99 97 Oximetry 10/11/20 10/11/20 10/11/20 08:48 08:53 08:58 Temperature Pulse Rate 89 81 75 Respiratory Rate Blood Pressure 107/59 Blood Pressure [Left] O2 Sat by Pulse 97 97 99 Oximetry 10/11/20 10/11/20 10/11/20 09:03 09:08 09:13 Temperature Pulse Rate 85 102 H 86 Respiratory Rate Blood Pressure 100/55 Blood Pressure [Left] O2 Sat by Pulse 99 99 99 Oximetry 10/11/20 10/11/20 10/11/20 09:18 09:23 09:28 Temperature Pulse Rate 81 76 79 Respiratory Rate Blood Pressure 101/59 Blood Pressure [Left] O2 Sat by Pulse 99 99 99 Oximetry 10/11/20 10/11/20 10/11/20 09:33 09:38 09:43 Temperature Pulse Rate 90 86 95 H Respiratory Rate Blood Pressure 105/57 Blood Pressure [Left] O2 Sat by Pulse 97 100 100 Oximetry 10/11/20 09:48 Temperature Pulse Rate 76 Respiratory Rate Blood Pressure Blood Pressure [Left] O2 Sat by Pulse 100 Oximetry - Exam Breasts: normal Cardiovascular: Regular rate Lungs: Normal air movement Abdomen: Present: normal appearance, soft Uterus: Present: normal, firm, fundal height at umbilicus FHR: category 1 Uterine Contraction Monitor Mode: Internal Cervical Dilatation: 6 (Large amount of clear fluid upon AROM @ 0950) Cervical Effacement Percentage: 70 station: -2 Uterine Contraction Pattern: Irregular Uterine Tone Measurement Phase: Resting Uterine Contraction Intensity: Moderate Extremities: edema (+1) - Labs Labs: Abnormal Labs 05/20/21 00:08 WBC 11.3 H Laboratory Results - last 24 hr 10/11/20 10/11/20 00:08 01:09 WBC 11.3 H RBC 3.72 Hgb 10.9 Hct 32.9 MCV 88 MCH 29 MCHC 33 RDW 15.0 Plt Count 218 Blood Type A POSITIVE Antibody Screen Negative
[2020-10-11] MEDS ORDERED: BUPIVACAINE/PF (0.25%) 2.5 MG/ML 10 ML VIAL INFILTRATI ONE (18:48)
--- NOTE | 2020-10-11 18:56 | Progress Note ---
Assessment and Plan A: IUP@ 41 wks (postdates) MO CAT I FHT Stalled labor MVUs 225 Hx Epilepsy p: Continue monitoring with Pitocin and IFM/IUPC Consulted Dr Henderson re stalled labor Will reassess in 1 hr and Anticipate progress Subjective - Subjective Date of service: 10/11/20 Principal diagnosis: IUP@ term Patient reports: movement normal, other (Resting well under epidural anesthesia) Objective - Vital Signs Vital Signs: Vital Signs - 12hr 10/11/20 10/11/20 10/11/20 06:31 06:33 06:38 Temperature Pulse Rate 100 H 98 H 96 H Respiratory Rate Blood Pressure 109/56 Blood Pressure [Left] O2 Sat by Pulse 99 100 Oximetry 10/11/20 10/11/20 10/11/20 06:41 06:43 06:44 Temperature Pulse Rate 102 H 97 H 95 H Respiratory Rate Blood Pressure 111/61 87/47 Blood Pressure [Left] O2 Sat by Pulse 98 Oximetry 10/11/20 10/11/20 10/11/20 06:46 06:48 06:49 Temperature Pulse Rate 86 96 H 107 H Respiratory Rate Blood Pressure 86/49 79/43 83/50 Blood Pressure [Left] O2 Sat by Pulse 100 Oximetry 10/11/20 10/11/20 10/11/20 06:50 06:52 06:53 Temperature Pulse Rate 122 H 87 111 H Respiratory Rate Blood Pressure 86/60 140/76 Blood Pressure [Left] O2 Sat by Pulse 100 Oximetry 10/11/20 10/11/20 10/11/20 06:54 06:56 06:58 Temperature Pulse Rate 117 H 121 H 106 H Respiratory Rate Blood Pressure 111/55 97/51 88/53 Blood Pressure [Left] O2 Sat by Pulse 98 Oximetry 10/11/20 10/11/20 10/11/20 07:00 07:03 07:07 Temperature Pulse Rate 102 H 86 Respiratory Rate Blood Pressure 80/41 105/57 166/90 Blood Pressure [Left] O2 Sat by Pulse 96 Oximetry 10/11/20 10/11/20 10/11/20 07:08 07:09 07:13 Temperature Pulse Rate 101 H 107 H 77 Respiratory Rate Blood Pressure 167/77 Blood Pressure [Left] O2 Sat by Pulse 98 98 Oximetry 10/11/20 10/11/20 10/11/20 07:18 07:22 07:23 Temperature Pulse Rate 77 75 98 H Respiratory Rate Blood Pressure 134/67 Blood Pressure [Left] O2 Sat by Pulse 97 97 Oximetry 10/11/2020/12 10/ 07:24 07:28 07:30 Temperature 98.1 F Pulse Rate 107 H 102 H 68 Respiratory 18 Rate Blood Pressure Blood Pressure 134/67 [Left] O2 Sat by Pulse 96 96 93 Oximetry 10/11/20/20/10/11/20 07:33 07:38 07:40 Temperature Pulse Rate 84 81 92 H Respiratory Rate Blood Pressure 120/63 Blood Pressure [Left] O2 Sat by Pulse 98 98 Oximetry 10/11/20/20/12 10/20/ 07:43 07:48 07:50 Temperature Pulse Rate 91 H 98 H 96 H Respiratory Rate Blood Pressure 107/56 Blood Pressure [Left] O2 Sat by Pulse 97 98 Oximetry 10/11/2020/12 10/20/ 07:53 07:58 08:00 Temperature Pulse Rate 89 80 78 Respiratory Rate Blood Pressure 116/60 Blood Pressure [Left] O2 Sat by Pulse 97 98 Oximetry 10/11/2010/11/10/11/ 08:03 08:08 08:13 Temperature Pulse Rate 93 H 72 92 H Respiratory Rate Blood Pressure Blood Pressure [Left] O2 Sat by Pulse 98 99 97 Oximetry 10/11/2020/12 10/20/ 08:18 08:23 08:28 Temperature Pulse Rate 88 89 93 H Respiratory Rate Blood Pressure 100/58 Blood Pressure [Left] O2 Sat by Pulse 98 98 97 Oximetry 10/11/2010/11/12 10/20/ 08:33 08:38 08:39 Temperature Pulse Rate 76 74 76 Respiratory Rate Blood Pressure 113/67 Blood Pressure [Left] O2 Sat by Pulse 98 99 Oximetry 10/11/20/20/21 05/20/ 08:43 08:48 08:53 Temperature Pulse Rate 75 89 81 Respiratory Rate Blood Pressure 107/59 Blood Pressure [Left] O2 Sat by Pulse 97 97 97 Oximetry 10/11/20/20/21 05/20/ 08:58 09:03 09:08 Temperature Pulse Rate 75 85 102 H Respiratory Rate Blood Pressure 100/55 Blood Pressure [Left] O2 Sat by Pulse 99 99 99 Oximetry 10/11/20 10/11/20 10/11/20 09:13 09:18 09:23 Temperature Pulse Rate 86 81 76 Respiratory Rate Blood Pressure 101/59 Blood Pressure [Left] O2 Sat by Pulse 99 99 99 Oximetry 10/11/20 10/11/20 10/11/20 09:28 09:33 09:38 Temperature Pulse Rate 79 90 86 Respiratory Rate Blood Pressure 105/57 Blood Pressure [Left] O2 Sat by Pulse 99 97 100 Oximetry 10/11/20 10/11/20 10/11/20 09:43 09:48 09:53 Temperature Pulse Rate 95 H 76 75 Respiratory Rate Blood Pressure 117/60 Blood Pressure [Left] O2 Sat by Pulse 100 100 100 Oximetry 10/11/20 10/11/20 10/11/20 09:58 10:03 10:08 Temperature Pulse Rate 81 85 80 Respiratory Rate Blood Pressure Blood Pressure [Left] O2 Sat by Pulse 100 100 100 Oximetry 10/11/20 10/11/20 10/11/20 10:10 10:13 10:18 Temperature Pulse Rate 80 80 85 Respiratory Rate Blood Pressure 103/65 Blood Pressure [Left] O2 Sat by Pulse 100 100 Oximetry 10/11/20 10/11/20 10/11/20 10:23 10:25 10:28 Temperature Pulse Rate 84 80 86 Respiratory Rate Blood Pressure 88/61 103/57 Blood Pressure [Left] O2 Sat by Pulse 100 100 Oximetry 10/11/20 10/11/20 10/11/20 10:33 10:38 10:43 Temperature Pulse Rate 93 H 85 89 Respiratory Rate Blood Pressure Blood Pressure [Left] O2 Sat by Pulse 100 100 99 Oximetry 10/11/20 10/11/20 10/11/20 10:48 10:53 10:58 Temperature Pulse Rate 81 77 92 H Respiratory Rate Blood Pressure 91/54 Blood Pressure [Left] O2 Sat by Pulse 99 99 98 Oximetry 10/11/20 10/11/20 10/11/20 11:03 11:08 11:13 Temperature Pulse Rate 80 90 84 Respiratory Rate Blood Pressure Blood Pressure [Left] O2 Sat by Pulse 97 99 99 Oximetry 10/11/20 10/11/20 10/11/20 11:18 11:23 11:29 Temperature Pulse Rate 80 75 73 Respiratory Rate Blood Pressure 103/55 Blood Pressure [Left] O2 Sat by Pulse 97 97 97 Oximetry 10/11/20 10/11/20 10/11/20 11:34 11:39 11:44 Temperature Pulse Rate 78 69 80 Respiratory Rate Blood Pressure Blood Pressure [Left] O2 Sat by Pulse 97 97 98 Oximetry 10/11/20 10/11/20 10/11/20 11:49 11:54 11:58 Temperature Pulse Rate 79 71 72 Respiratory Rate Blood Pressure 100/52 Blood Pressure [Left] O2 Sat by Pulse 98 100 Oximetry 10/11/20 10/11/20 10/11/20 11:59 12:01 12:04 Temperature Pulse Rate 75 69 72 Respiratory Rate Blood Pressure 99/55 Blood Pressure [Left] O2 Sat by Pulse 100 100 Oximetry 10/11/20 10/11/20 10/11/20 12:09 12:14 12:19 Temperature Pulse Rate 76 71 77 Respiratory Rate Blood Pressure Blood Pressure [Left] O2 Sat by Pulse 100 100 100 Oximetry 10/11/20 10/11/20 10/11/20 12:24 12:29 12:34 Temperature Pulse Rate 70 72 72 Respiratory Rate Blood Pressure 101/52 Blood Pressure [Left] O2 Sat by Pulse 100 100 100 Oximetry 10/11/20 10/11/20 10/11/20 12:39 12:44 12:49 Temperature Pulse Rate 78 69 74 Respiratory Rate Blood Pressure Blood Pressure [Left] O2 Sat by Pulse 100 100 100 Oximetry 10/11/20 10/11/20 10/11/20 12:54 12:59 13:04 Temperature Pulse Rate 71 75 79 Respiratory Rate Blood Pressure 106/56 Blood Pressure [Left] O2 Sat by Pulse 100 100 100 Oximetry 10/11/20 10/11/20 10/11/20 13:09 13:14 13:19 Temperature Pulse Rate 68 71 80 Respiratory Rate Blood Pressure Blood Pressure [Left] O2 Sat by Pulse 100 100 100 Oximetry 10/11/20 10/11/20 10/11/20 13:24 13:28 13:29 Temperature Pulse Rate 73 77 74 Respiratory Rate Blood Pressure 103/58 Blood Pressure [Left] O2 Sat by Pulse 100 100 Oximetry 10/11/20 10/11/20 10/11/20 13:34 13:39 13:44 Temperature Pulse Rate 76 78 80 Respiratory Rate Blood Pressure Blood Pressure [Left] O2 Sat by Pulse 100 100 100 Oximetry 10/11/20 10/11/20 10/11/20 13:49 13:54 13:58 Temperature Pulse Rate 98 H 77 88 Respiratory Rate Blood Pressure 101/64 Blood Pressure [Left] O2 Sat by Pulse 100 99 Oximetry 10/11/20 10/11/20 10/11/20 13:59 14:04 14:09 Temperature Pulse Rate 83 82 91 H Respiratory Rate Blood Pressure Blood Pressure [Left] O2 Sat by Pulse 99 99 100 Oximetry 10/11/20 10/11/20 10/11/20 14:14 14:19 14:24 Temperature Pulse Rate 86 79 83 Respiratory Rate Blood Pressure Blood Pressure [Left] O2 Sat by Pulse 100 100 99 Oximetry 10/11/20 10/11/20 10/11/20 14:29 14:34 14:39 Temperature Pulse Rate 83 85 87 Respiratory Rate Blood Pressure 104/63 Blood Pressure [Left] O2 Sat by Pulse 100 98 100 Oximetry 10/11/20 10/11/20 10/11/20 14:44 14:49 14:54 Temperature Pulse Rate 85 88 85 Respiratory Rate Blood Pressure Blood Pressure [Left] O2 Sat by Pulse 100 100 99 Oximetry 10/11/20 10/11/20 10/11/20 14:58 14:59 15:04 Temperature Pulse Rate 93 H 89 91 H Respiratory Rate Blood Pressure 107/65 Blood Pressure [Left] O2 Sat by Pulse 90 100 100 Oximetry 10/11/20 10/11/20 10/11/20 15:09 15:14 15:19 Temperature Pulse Rate 85 86 95 H Respiratory Rate Blood Pressure Blood Pressure [Left] O2 Sat by Pulse 100 100 100 Oximetry 10/11/20 10/11/20 10/11/20 15:21 15:24 15:29 Temperature Pulse Rate 89 87 87 Respiratory Rate Blood Pressure 115/65 Blood Pressure [Left] O2 Sat by Pulse 85 100 100 Oximetry 10/11/20 10/11/20 10/11/20 15:34 15:39 15:44 Temperature Pulse Rate 86 81 85 Respiratory Rate Blood Pressure Blood Pressure [Left] O2 Sat by Pulse 100 100 100 Oximetry 10/11/20 10/11/20 10/11/20 15:49 15:54 15:59 Temperature Pulse Rate 88 88 99 H Respiratory Rate Blood Pressure 121/66 Blood Pressure [Left] O2 Sat by Pulse 100 99 100 Oximetry 10/11/20 10/11/20 10/11/20 16:04 16:09 16:10 Temperature Pulse Rate 85 83 89 Respiratory Rate Blood Pressure Blood Pressure [Left] O2 Sat by Pulse 100 100 94 Oximetry 10/11/20 10/11/20 10/11/20 16:14 16:19 16:24 Temperature Pulse Rate 87 81 85 Respiratory Rate Blood Pressure Blood Pressure [Left] O2 Sat by Pulse 100 100 100 Oximetry 10/11/20 10/11/20 10/11/20 16:29 16:34 16:39 Temperature Pulse Rate 82 82 87 Respiratory Rate Blood Pressure 113/61 Blood Pressure [Left] O2 Sat by Pulse 100 100 100 Oximetry 10/11/20 10/11/20 10/11/20 16:44 16:49 16:54 Temperature Pulse Rate 81 84 85 Respiratory Rate Blood Pressure Blood Pressure [Left] O2 Sat by Pulse 100 100 99 Oximetry 10/11/20 10/11/20 10/11/20 16:58 16:59 17:04 Temperature Pulse Rate 85 84 77 Respiratory Rate Blood Pressure 103/54 Blood Pressure [Left] O2 Sat by Pulse 88 100 99 Oximetry 10/11/20 10/11/20 10/11/20 17:09 17:14 17:19 Temperature Pulse Rate 77 80 80 Respiratory Rate Blood Pressure Blood Pressure [Left] O2 Sat by Pulse 100 100 100 Oximetry 10/11/20 10/11/20 10/11/20 17:24 17:30 17:35 Temperature Pulse Rate 79 75 79 Respiratory Rate Blood Pressure 120/64 Blood Pressure [Left] O2 Sat by Pulse 100 100 100 Oximetry 10/11/20 10/11/20 10/11/20 17:40 17:45 17:50 Temperature Pulse Rate 80 77 79 Respiratory Rate Blood Pressure Blood Pressure [Left] O2 Sat by Pulse 100 100 100 Oximetry 10/11/20 10/11/20 10/11/20 17:55 17:59 18:00 Temperature Pulse Rate 83 86 85 Respiratory Rate Blood Pressure 121/67 Blood Pressure [Left] O2 Sat by Pulse 100 100 Oximetry 10/11/20 10/11/20 10/11/20 18:05 18:10 18:15 Temperature Pulse Rate 87 85 91 H Respiratory Rate Blood Pressure Blood Pressure [Left] O2 Sat by Pulse 100 100 100 Oximetry 10/11/20 10/11/20 10/11/20 18:17 18:20 18:25 Temperature Pulse Rate 83 101 H 97 H Respiratory Rate Blood Pressure Blood Pressure [Left] O2 Sat by Pulse 94 100 100 Oximetry - Exam Breasts: normal Abdomen: Present: normal appearance, soft, normal bowel sounds Vulva: both: normal Uterus: Present: normal FHR: auscultation normal, category 1 Uterine Contraction Monitor Mode: Internal Cervical Dilatation: 6 Cervical Effacement Percentage: 80 station: -2 Uterine Contraction Pattern: Regular Uterine Tone Measurement Phase: Resting Uterine Contraction Intensity: Strong/Firm Extremities: normal - Labs Labs: Abnormal Labs 10/11/20 00:08 WBC 11.3 H Laboratory Results - last 24 hr 10/11/20 10/11/20 10/11/20 00:08 01:09 Unknown WBC 11.3 H RBC 3.72 Hgb 10.9 Hct 32.9 MCV 88 MCH 29 MCHC 33 RDW 15.0 Plt Count 218 Coronavirus (PCR) Negative Blood Type A POSITIVE Antibody Screen Negative
[2020-10-11] MEDS ORDERED: BICITRA ORAL LIQD 30ML PO ONE ×2 (21:06→23:37)
[2020-10-11] MEDS ORDERED: METOCLOPRAMIDE 10 MG/2 ML INJ IV ONE ×2 (21:06→23:37)
[2020-10-11] MEDS ORDERED: FAMOTIDINE 20 MG/2 ML INJ IV ONE ×2 (21:06→23:37)
--- NOTE | 2020-10-11 21:15 | Progress Note ---
Assessment and Plan FAILURE TO PROGRESS AND DESCEND,LGA FETUS. - Patient Problems (1) LGA (large for gestational age) fetus Current Visit: Yes Status: Acute Subjective Date of service: 10/11/20 Principal diagnosis: IUP@ term, FAILURE TO PROGRESS AND DESCEND. 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 LAST CK CX WAS 6 CMS,100% AND -4 STATION. Objective - Constitutional Vitals: Vital Signs - 12hr 10/11/20 10/11/20 10/11/20 09:13 09:18 09:23 Temperature Pulse Rate 86 81 76 Respiratory Rate Blood Pressure 101/59 Blood Pressure [Left] O2 Sat by Pulse 99 99 99 Oximetry 10/11/20 10/11/20 10/11/20 09:28 09:33 09:38 Temperature Pulse Rate 79 90 86 Respiratory Rate Blood Pressure 105/57 Blood Pressure [Left] O2 Sat by Pulse 99 97 100 Oximetry 10/11/20 10/11/20 10/11/20 09:43 09:48 09:53 Temperature Pulse Rate 95 H 76 75 Respiratory Rate Blood Pressure 117/60 Blood Pressure [Left] O2 Sat by Pulse 100 100 100 Oximetry 10/11/20 10/11/20 10/11/20 09:58 10:03 10:08 Temperature Pulse Rate 81 85 80 Respiratory Rate Blood Pressure Blood Pressure [Left] O2 Sat by Pulse 100 100 100 Oximetry 10/11/20 10/11/20 10/11/20 10:10 10:13 10:18 Temperature Pulse Rate 80 80 85 Respiratory Rate Blood Pressure 103/65 Blood Pressure [Left] O2 Sat by Pulse 100 100 Oximetry 10/11/20 10/11/20 10/11/20 10:23 10:25 10:28 Temperature Pulse Rate 84 80 86 Respiratory Rate Blood Pressure 88/61 103/57 Blood Pressure [Left] O2 Sat by Pulse 100 100 Oximetry 10/11/20 10/11/20 10/11/20 10:33 10:38 10:43 Temperature Pulse Rate 93 H 85 89 Respiratory Rate Blood Pressure Blood Pressure [Left] O2 Sat by Pulse 100 100 99 Oximetry 10/11/20 10/11/20 10/11/20 10:48 10:53 10:58 Temperature Pulse Rate 81 77 92 H Respiratory Rate Blood Pressure 91/54 Blood Pressure [Left] O2 Sat by Pulse 99 99 98 Oximetry 10/11/20 10/11/20 10/11/20 11:03 11:08 11:13 Temperature Pulse Rate 80 90 84 Respiratory Rate Blood Pressure Blood Pressure [Left] O2 Sat by Pulse 97 99 99 Oximetry 10/11/20 10/11/20 10/11/20 11:18 11:23 11:29 Temperature Pulse Rate 80 75 73 Respiratory Rate Blood Pressure 103/55 Blood Pressure [Left] O2 Sat by Pulse 97 97 97 Oximetry 10/11/20 10/11/20 10/11/20 11:34 11:39 11:44 Temperature Pulse Rate 78 69 80 Respiratory Rate Blood Pressure Blood Pressure [Left] O2 Sat by Pulse 97 97 98 Oximetry 10/11/20 10/11/20 10/11/20 11:49 11:54 11:58 Temperature Pulse Rate 79 71 72 Respiratory Rate Blood Pressure 100/52 Blood Pressure [Left] O2 Sat by Pulse 98 100 Oximetry 10/11/20 10/11/20 10/11/20 11:59 12:01 12:04 Temperature Pulse Rate 75 69 72 Respiratory Rate Blood Pressure 99/55 Blood Pressure [Left] O2 Sat by Pulse 100 100 Oximetry 10/11/20 10/11/20 10/11/20 12:09 12:14 12:19 Temperature Pulse Rate 76 71 77 Respiratory Rate Blood Pressure Blood Pressure [Left] O2 Sat by Pulse 100 100 100 Oximetry 10/11/20 10/11/20 10/11/20 12:24 12:29 12:34 Temperature Pulse Rate 70 72 72 Respiratory Rate Blood Pressure 101/52 Blood Pressure [Left] O2 Sat by Pulse 100 100 100 Oximetry 10/11/20 10/11/20 10/11/20 12:39 12:44 12:49 Temperature Pulse Rate 78 69 74 Respiratory Rate Blood Pressure Blood Pressure [Left] O2 Sat by Pulse 100 100 100 Oximetry 10/11/20 10/11/20 10/11/20 12:54 12:59 13:04 Temperature Pulse Rate 71 75 79 Respiratory Rate Blood Pressure 106/56 Blood Pressure [Left] O2 Sat by Pulse 100 100 100 Oximetry 10/11/20 10/11/20 10/11/20 13:09 13:14 13:19 Temperature Pulse Rate 68 71 80 Respiratory Rate Blood Pressure Blood Pressure [Left] O2 Sat by Pulse 100 100 100 Oximetry 10/11/20 10/11/2010/11/21 13:24 13:28 13:29 Temperature Pulse Rate 73 77 74 Respiratory Rate Blood Pressure 103/58 Blood Pressure [Left] O2 Sat by Pulse 100 100 Oximetry 10/11/20 10/11/20 10/11/20 13:34 13:39 13:44 Temperature Pulse Rate 76 78 80 Respiratory Rate Blood Pressure Blood Pressure [Left] O2 Sat by Pulse 100 100 100 Oximetry 10/11/20 10/11/20 10/11/20 13:49 13:54 13:58 Temperature Pulse Rate 98 H 77 88 Respiratory Rate Blood Pressure 101/64 Blood Pressure [Left] O2 Sat by Pulse 100 99 Oximetry 10/11/20 10/11/20 10/11/20 13:59 14:04 14:09 Temperature Pulse Rate 83 82 91 H Respiratory Rate Blood Pressure Blood Pressure [Left] O2 Sat by Pulse 99 99 100 Oximetry 10/11/20 10/11/20 10/11/20 14:14 14:19 14:24 Temperature Pulse Rate 86 79 83 Respiratory Rate Blood Pressure Blood Pressure [Left] O2 Sat by Pulse 100 100 99 Oximetry 10/11/20 10/11/20 10/11/20 14:29 14:34 14:39 Temperature Pulse Rate 83 85 87 Respiratory Rate Blood Pressure 104/63 Blood Pressure [Left] O2 Sat by Pulse 100 98 100 Oximetry 10/11/20 10/11/20 10/11/20 14:44 14:49 14:54 Temperature Pulse Rate 85 88 85 Respiratory Rate Blood Pressure Blood Pressure [Left] O2 Sat by Pulse 100 100 99 Oximetry 10/11/20 10/11/20 10/11/20 14:58 14:59 15:04 Temperature Pulse Rate 93 H 89 91 H Respiratory Rate Blood Pressure 107/65 Blood Pressure [Left] O2 Sat by Pulse 90 100 100 Oximetry 10/11/20 10/11/20 10/11/20 15:09 15:14 15:19 Temperature Pulse Rate 85 86 95 H Respiratory Rate Blood Pressure Blood Pressure [Left] O2 Sat by Pulse 100 100 100 Oximetry 10/11/20 10/11/20 10/11/20 15:21 15:24 15:29 Temperature Pulse Rate 89 87 87 Respiratory Rate Blood Pressure 115/65 Blood Pressure [Left] O2 Sat by Pulse 85 100 100 Oximetry 10/11/20 10/11/20 10/11/20 15:34 15:39 15:44 Temperature Pulse Rate 86 81 85 Respiratory Rate Blood Pressure Blood Pressure [Left] O2 Sat by Pulse 100 100 100 Oximetry 10/11/20 10/11/20 10/11/20 15:49 15:54 15:59 Temperature Pulse Rate 88 88 99 H Respiratory Rate Blood Pressure 121/66 Blood Pressure [Left] O2 Sat by Pulse 100 99 100 Oximetry 10/11/20 10/11/20 10/11/20 16:04 16:09 16:10 Temperature Pulse Rate 85 83 89 Respiratory Rate Blood Pressure Blood Pressure [Left] O2 Sat by Pulse 100 100 94 Oximetry 10/11/20 10/11/20 10/11/20 16:14 16:19 16:24 Temperature Pulse Rate 87 81 85 Respiratory Rate Blood Pressure Blood Pressure [Left] O2 Sat by Pulse 100 100 100 Oximetry 10/11/20 10/11/20 10/11/20 16:29 16:34 16:39 Temperature Pulse Rate 82 82 87 Respiratory Rate Blood Pressure 113/61 Blood Pressure [Left] O2 Sat by Pulse 100 100 100 Oximetry 10/11/20 10/11/20 10/11/20 16:44 16:49 16:54 Temperature Pulse Rate 81 84 85 Respiratory Rate Blood Pressure Blood Pressure [Left] O2 Sat by Pulse 100 100 99 Oximetry 10/11/20 10/11/20 10/11/20 16:58 16:59 17:04 Temperature Pulse Rate 85 84 77 Respiratory Rate Blood Pressure 103/54 Blood Pressure [Left] O2 Sat by Pulse 88 100 99 Oximetry 10/11/20 10/11/20 10/11/20 17:09 17:14 17:19 Temperature Pulse Rate 77 80 80 Respiratory Rate Blood Pressure Blood Pressure [Left] O2 Sat by Pulse 100 100 100 Oximetry 10/11/20 10/11/20 10/11/20 17:24 17:30 17:35 Temperature Pulse Rate 79 75 79 Respiratory Rate Blood Pressure 120/64 Blood Pressure [Left] O2 Sat by Pulse 100 100 100 Oximetry 10/11/20 10/11/20 10/11/20 17:40 17:45 17:50 Temperature Pulse Rate 80 77 79 Respiratory Rate Blood Pressure Blood Pressure [Left] O2 Sat by Pulse 100 100 100 Oximetry 10/11/20 10/11/20 10/11/20 17:55 17:59 18:00 Temperature Pulse Rate 83 86 85 Respiratory Rate Blood Pressure 121/67 Blood Pressure [Left] O2 Sat by Pulse 100 100 Oximetry 10/11/20 10/11/20 10/11/20 18:05 18:10 18:15 Temperature Pulse Rate 87 85 91 H Respiratory Rate Blood Pressure Blood Pressure [Left] O2 Sat by Pulse 100 100 100 Oximetry 10/11/20 10/11/20 10/11/20 18:17 18:20 18:25 Temperature Pulse Rate 83 101 H 97 H Respiratory Rate Blood Pressure Blood Pressure [Left] O2 Sat by Pulse 94 100 100 Oximetry 10/11/20 10/11/20 10/11/20 18:30 18:35 18:40 Temperature Pulse Rate 86 91 H 88 Respiratory Rate Blood Pressure 119/58 Blood Pressure [Left] O2 Sat by Pulse 100 99 100 Oximetry 10/11/20 10/11/20 10/11/20 18:45 18:46 18:50 Temperature Pulse Rate 83 96 H 88 Respiratory Rate Blood Pressure Blood Pressure [Left] O2 Sat by Pulse 100 74 L 100 Oximetry 10/11/20 10/11/20 10/11/20 18:55 18:59 19:00 Temperature Pulse Rate 71 62 69 Respiratory Rate Blood Pressure 131/86 Blood Pressure [Left] O2 Sat by Pulse 100 96 Oximetry 10/11/20 10/11/20 10/11/20 19:04 19:05 19:10 Temperature Pulse Rate 86 74 76 Respiratory Rate Blood Pressure 126/83 Blood Pressure [Left] O2 Sat by Pulse 100 100 Oximetry 10/11/20 10/11/20 10/11/20 19:15 19:20 19:25 Temperature Pulse Rate 79 74 73 Respiratory Rate Blood Pressure Blood Pressure [Left] O2 Sat by Pulse 100 100 100 Oximetry 10/11/20 10/11/20 10/11/20 19:30 19:35 19:37 Temperature Pulse Rate 76 75 77 Respiratory Rate Blood Pressure 126/75 125/77 Blood Pressure [Left] O2 Sat by Pulse 100 100 Oximetry 10/11/20 10/11/20 10/11/20 19:40 19:41 19:45 Temperature 98.2 F Pulse Rate 69 75 78 Respiratory 14 Rate Blood Pressure Blood Pressure 125/77 [Left] O2 Sat by Pulse 100 100 100 Oximetry 10/11/20 10/11/2021 19:50 19:55 19:58 Temperature Pulse Rate 77 76 75 Respiratory Rate Blood Pressure 131/76 Blood Pressure [Left] O2 Sat by Pulse 100 100 Oximetry 10/11/20 10/11/20 10/11/20 20:00 20:05 20:10 Temperature Pulse Rate 73 76 74 Respiratory Rate Blood Pressure Blood Pressure [Left] O2 Sat by Pulse 100 100 100 Oximetry 10/11/20 10/11/20 10/11/20 20:15 20:20 20:25 Temperature Pulse Rate 79 78 81 Respiratory Rate Blood Pressure Blood Pressure [Left] O2 Sat by Pulse 100 100 100 Oximetry 10/11/20 10/11/20 10/11/20 20:29 20:30 20:35 Temperature Pulse Rate 97 H 105 H 76 Respiratory Rate Blood Pressure 133/80 Blood Pressure [Left] O2 Sat by Pulse 100 100 Oximetry 10/11/20 10/11/20 10/11/20 20:40 20:45 20:50 Temperature Pulse Rate 84 80 88 Respiratory Rate Blood Pressure Blood Pressure [Left] O2 Sat by Pulse 99 98 99 Oximetry 10/11/20 10/11/20 10/11/20 20:55 20:58 21:00 Temperature Pulse Rate 114 H 108 H 111 H Respiratory Rate Blood Pressure 133/68 Blood Pressure [Left] O2 Sat by Pulse 99 98 Oximetry 10/11/20 21:05 Temperature Pulse Rate 99 H Respiratory Rate Blood Pressure Blood Pressure [Left] O2 Sat by Pulse 99 Oximetry General appearance: Present: no acute distress, well-nourished - EENT Eyes: PERRL, EOM intact ENT: hearing intact, clear oral mucosa Ears: bilateral: normal - Neck Neck: supple, normal ROM - Respiratory Respiratory effort: normal Respiratory: bilateral: CTA - Breasts Breasts: normal - Cardiovascular Rhythm: regular Heart Sounds: Present: S1 & S2. Absent: gallop, rub Extremities: pulses intact, No edema, normal color, Full ROM - Gastrointestinal General gastrointestinal: Present: soft, non-tender, non-distended, normal bowel sounds - Genitourinary Female genitourinary: normal - Integumentary Integumentary: clear, warm, dry - Musculoskeletal Musculoskeletal: 1, strength equal bilaterally - Neurologic Neurologic: moves all extremities - Psychiatric Psychiatric: memory intact, appropriate mood/affect, intact judgment & insight - Labs CBC & Chem 7: 10/11/20 00:08 Labs: Abnormal lab results 10/11/20 Range/Units 00:08 WBC 11.3 H (4.5-11.0) K/mm3 Medications & Allergies - Medications Allergies/Adverse Reactions: Allergies No Known Allergies Allergy (Verified 10/04/20 17:55) Home Medications: Home Medications Medication Instructions Recorded Confirmed Last Taken Type No Known Home Medications [No 10/10/20 10/10/20 Unknown History Reported Home Medications] Active Medications: Generic Name Dose Route Start Last Admin Trade Name Freq PRN Reason Stop Dose Admin Acetaminophen 650 mg 10/10/20 23:42 Acetaminophen 325 Mg Tab PO Q4H PRN Pain, Mild (1-3) Butorphanol Tartrate 2 mg 10/11/20 01:35 Butorphanol 2 Mg/1 Ml Inj IV Q2H PRN Labor Pain Cefazolin Sodium 2 gm 10/11/20 22:00 Cefazolin/Sterile Water 2 Gm/20 Ml Syringe IV 10/11/20 23:00 PREOP NR Ephedrine Sulfate 10 mg 10/10/20 23:42 10/11/20 06:51 Ephedrine Sulfate 50 Mg/1 Ml Inj IV 10 mg Q2M PRN Administration Hypotension Oxytocin/Sodium Chloride 30 units in 500 mls @ 4 mls/hr 10/10/20 23:45 10/11/20 20:00 Pitocin/Ns 30 Unit/500ml IV 14 mls/hr TITR ALOK 14 mls/hr Titration Protocol Lactated Ringer's 1,000 mls @ 125 mls/hr 10/10/20 23:45 10/11/20 15:26 Lactated Ringers IV 125 mls/hr DIRECT ALOK Administration Oxytocin/Sodium Chloride 30 units in 500 mls @ 40 mls/hr 10/10/20 23:45 Pitocin/Ns 30 Unit/500ml IV TITR ALOK Protocol Fentanyl/Bupivacaine/Sodium Chlor 200 mcg in 100 mls @ 12 mls/hr 10/11/20 07:00 10/11/20 15:26 Fentanyl-Bupiv 2 Mcg/Ml-0.125% EPIDURAL 12 mls/hr TITR ALOK Administration Protocol Mineral Oil 30 ml 10/10/20 23:42 Mineral Oil 30 Ml Oral Liqd PO QHS PRN Constipation Misoprostol 800 mcg 10/10/20 23:42 Misoprostol 200 Mcg Tab DC ONCE PRN Uterine Bleeding Naloxone HCl 0.1 mg 10/10/20 23:42 Naloxone 0.4 Mg/1 Ml Inj IV Q2MIN PRN Res Rate </= 8 or 02 SAT < 92% Naloxone HCl 0.2 mg 10/11/20 06:21 Naloxone 2 Mg/2 Ml Inj IV Q5M PRN Respiratory sedation Ondansetron HCl 4 mg 10/10/20 23:42 Ondansetron 4 Mg/2 Ml Inj IV Q8H PRN Nausea And Vomiting
[2020-10-11] MEDS ORDERED: ceFAZolin/STERILE WATER 2 GM/20 ML SYRINGE IV ONE (22:00)
[2020-10-11] MEDS ORDERED: ceFAZolin/STERILE WATER 2 GM/20 ML SYRINGE IV NR (22:00)
[2020-10-11] MEDS ORDERED: KETOROLAC 30 MG/1 ML INJ ONE (22:21)
[2020-10-11] MEDS ORDERED: BUPIVACAINE/PF (0.5%) 5 MG/1 ML 30 ML VIAL INFILTRATI ONE (22:21)
[2020-10-11] MEDS ORDERED: LIDOCAINE 2%/EPINEPHRINE 1:200,000 VIAL (20 ML) INFILTRATI ONE (22:21)
[2020-10-11] MEDS ORDERED: SODIUM CHLORIDE 0.9% IRR 1,500 ML BOTTLE IR ONE (22:24)
[2020-10-11] MEDS ORDERED: WATER FOR IRRIG STERILE 1,500 ML BOTTLE IR ONE (22:24)
[2020-10-11] MEDS ORDERED: MORPHINE 4 MG/1 ML INJ IV PRN (23:29)
[2020-10-11] MEDS ORDERED: MORPHINE 2 MG/1 ML INJ IV PRN (23:29)
[2020-10-11] MEDS ORDERED: WITCH HAZEL/ GLYCERIN PAD TP PRN (23:29)
[2020-10-11] MEDS ORDERED: NALOXONE 0.4 MG/1 ML INJ IV PRN (23:29)
[2020-10-11] MEDS ORDERED: LANOLIN/ZINC/DIMETHICONE (LANSINOH) 7 GM TP PRN (23:29)
--- NOTE | 2020-10-11 23:37 | Procedure Note ---
Date of procedure: 10/11/20 Pre-op diagnosis: lga fetus, failure to progress, failed induction Post-op diagnosis: same Procedure: The patient underwent a primary low transverse section. The baby weighed 8 pounds 8 ounces vertex presentation Apgars 8 and 9 estimated blood loss 1000 cc urine was 400 cc fluids IV was 1 L. The patient was taken to the section room and made ready for primary low transverse section under epidural anesthesia she had an indwelling Landis catheter. She was then prepped and draped in usual fashion we did do timeout we all concurred. A low transverse incision made in lower uterine segment with a scalpel we entered abdominal cavity anatomically this uterine peritoneum as well as opened transversely with Metzenbaums and sharp dissection a low transverse incision made in the lower uterine segment with the scalpel and the fetus in occiput anterior presentation was then delivered we had to use a vacuum because of the size of the baby to deliver the head once that was done oropharynx with suction nasopharynx suction resume was delivered without incident cord doubly clamped and cut fetus passed off the table to the nurses in stable condition cord blood was obtained I was not obtain excuse me The uterine cavity was cleaned of debris membranes and tissue uterine incision was repaired in 2 layers first layer was used using using #0 chromic in the supra deep myometrium continuous fashion secondary to superficial vomit using 0 chromic suture in a continuous fashion uterine incision was hemostatic vesicouterine peritoneum was repaired running 2-0 chromic on a GI needle tubes and ovaries appeared to be normal gutters was cleaned of debris membranes blood and tissue uterus dropped back into abdominal cavity All instruments were removed from abdominal cavity instrument count needle lap needle lap and sponge count was correct anterior dome peritoneum was repaired running 2-0 chromic fascia repaired running locking 0 Vicryl subcutaneous is repaired running 2-0 chromic skin was repaired running subcuticular 4-0 Vicryl on a Laith needle and drape with Dermabond patient tolerated procedure well she was then allowed to go to recovery room in stable condition end of operative note. Time for the procedure was 45 minutes. Anesthesia: epidural Surgeon: ELLY TUBBS Estimated blood loss: other (1000ccs) IV fluids: 1,000 Urine output: 400 Pathology: none Specimen disposition: discarded Condition: stable Disposition: PACU
[2020-10-11] MEDS ORDERED: OXYTOCIN DRIP 30 UNITS/500 ML BAG IV SCH (23:45)
--- NOTE | 2020-10-11 23:56 | Progress Note ---
Regional Anesthesia Block - Regional Anesthesia Block Start Time: 23:45 Stop Time: 23:50 Performed By:: CHELITA DIANE Procedure: U/S guided bilateral tap block performed for post-operative pain requested by Dr. Henderson. H&P & labs reviewed. Procedure explained, questions answered, consent obtained. Patient in the supine position with ekg, blood pressure cuff and pulse ox on and working in PACU. Timeout performed immediately before start of procedure. Probe placed in the mid-axillary line and the external oblique, internal oblique, and transverse abdominus muscles identified. Skin was cleansed with chlorahexadine 0.5% and allowed to dry. A 4" 20 G Archer echogenic needle was advanced in plane until the tip was in the fascial plane between the internal oblique and the transverse abdominus. After negative aspiration 35 ml/side of [30 ml 0.5% Bupivacaine], [10 mg dexamethasone], and [40 ml sterile saline] was injected in 5 ml increments with negative aspiration in between. Patient tolerated procedure well.
[2020-10-12 01:03] LABS: Basophils % (Auto) 0.1 % (0.0-1.8); Eosinophils % (Auto) 0.1 % (0.0-4.3); Hematocrit 29.2 % (30.3-42.9); Hemoglobin 9.8 gm/dl (10.1-14.3); Lymphocytes # (Auto) 0.9 K/mm3 (1.2-5.4); Lymphocytes % (Auto) 5.5 % (13.4-35.0); Mean Corpuscular HGB Conc 33 % (30-34); Mean Corpuscular Volume 89 fl (79-97); Monocytes # (Auto) 1.5 K/mm3 (0.0-0.8); Monocytes % (Auto) 8.6 % (0.0-7.3); Platelet Count 185 K/mm3 (140-440); Red Cell Distribution Width 15.3 % (13.2-15.2)
[2020-10-12] MEDS: HYDROcodone/ACETAMINOPHEN 5-325 MG TAB PO PRN ×2 (09:44→11:53)
[2020-10-12 11:30] LABS: Hematocrit 27.2 % (30.3-42.9); Hemoglobin 9.3 gm/dl (10.1-14.3)
--- NOTE | 2020-10-12 11:58 | Progress Note ---
Assessment and Plan A: /postop day 1 S/P primary LTCS. Anemia. P: Encouraged ambulation. Iron supplementation when patient is passing gas and eating. Subjective - Subjective Date of service: 10/12/20 Principal diagnosis: day 1 S/P primary LTCS Interval history: Has not passed gas yet. Doing well. Patient reports: appetite normal, voiding normally, pain well controlled, ambulating normally, no dizzy ambulation, no flatus, no bowel movement, no nauseated : doing well Objective - Vital Signs Latest vital signs: Vital Signs Temp Pulse Resp BP BP Pulse Ox 10/12/20 08:49 98 F 81 19 113/67 95 10/12/20 06:02 20 10/12/20 01:39 98.4 F 71 20 130/77 100 10/12/20 00:34 71 18 91/47 95 10/12/20 00:19 78 16 124/79 95 10/12/20 00:04 76 16 116/64 95 10/11/20 23:49 79 16 114/54 96 10/11/20 23:44 77 14 113/56 96 10/11/20 23:39 98.1 F 73 16 101/50 96 10/11/20 21:40 95 H 100 10/11/20 21:35 86 99 10/11/20 21:30 86 99 10/11/20 21:29 76 129/70 10/11/20 21:25 107 H 100 10/11/20 21:20 103 H 99 10/11/20 21:15 90 100 10/11/20 21:10 82 99 10/11/20 21:05 99 H 99 10/11/20 21:00 111 H 98 2021 20:58 108 H 133/68 0521 20:55 114 H 99 10/11/20 20:50 88 99 20 20:45 80 98 10/11/20 20:40 84 99 20 20:35 76 100 10/11/20 20:30 105 H 100 20 20:29 97 H 133/80 05 20:25 81 100 0520 20:20 78 100 10/11/20 20:15 79 100 05 20:10 74 100 05 20:05 76 100 05/20/21 20:00 73 100 05/20/21 19:58 75 131/76 05/20/21 19:55 76 100 05/20/21 19:50 77 100 05/20/21 19:45 78 100 05/20/21 19:41 98.2 F 75 14 125/77 100 05/20/21 19:40 69 100 05/20/21 19:37 77 125/77 05/20/21 19:35 75 100 05/20/21 19:30 76 126/75 100 05/20/21 19:25 73 100 05/20/21 19:20 74 100 05/20/21 19:15 79 100 05/20/21 19:10 76 100 05/20/21 19:05 74 100 05/20/21 19:04 86 126/83 05/20/21 19:00 69 96 05/20/21 18:59 62 131/86 05/20/21 18:55 71 100 05/20/21 18:50 88 100 05/20/21 18:46 96 H 74 L 05/20/21 18:45 83 100 05/20/21 18:40 88 100 05/20/21 18:35 91 H 99 05/20/21 18:30 86 119/58 100 05/20/21 18:25 97 H 100 05/20/21 18:20 101 H 100 05/20/21 18:17 83 94 05/20/21 18:15 91 H 100 05/20/21 18:10 85 100 05/20/21 18:05 87 100 05/20/21 18:00 85 100 05/20/21 17:59 86 121/67 05/20/21 17:55 83 100 05/20/21 17:50 79 100 05/20/21 17:45 77 100 05/20/21 17:40 80 100 05/20/21 17:35 79 100 05/20/21 17:30 75 120/64 100 05/20/21 17:24 79 100 05/20/21 17:19 80 100 05/20/21 17:14 80 100 05/20/21 17:09 77 100 05/20/21 17:04 77 99 05/20/21 16:59 84 100 05/20/21 16:58 85 103/54 88 05/20/21 16:54 85 99 05/20/21 16:49 84 100 05/20/21 16:44 81 100 05/20/21 16:39 87 100 05/20/21 16:34 82 100 05/20/21 16:29 82 113/61 100 05/20/21 16:24 85 100 05/20/21 16:19 81 100 05/20/21 16:14 87 100 05/20/21 16:10 89 94 05/20/21 16:09 83 100 05/20/21 16:04 85 100 05/20/21 15:59 99 H 121/66 100 05/20/21 15:54 88 99 05/20/21 15:49 88 100 05/20/21 15:44 85 100 05/20/21 15:39 81 100 05/20/21 15:34 86 100 05/20/21 15:29 87 115/65 100 05/20/21 15:24 87 100 05/20/21 15:21 89 85 05/20/21 15:19 95 H 100 05/20/21 15:14 86 100 05/20/21 15:09 85 100 05/20/21 15:04 91 H 100 05/20/21 14:59 89 100 05/20/21 14:58 93 H 107/65 90 05/20/21 14:54 85 99 05/20/21 14:49 88 100 05/20/21 14:44 85 100 05/20/21 14:39 87 100 05/20/21 14:34 85 98 05/20/21 14:29 83 104/63 100 05/20/21 14:24 83 99 05/20/21 14:19 79 100 05/20/21 14:14 86 100 05/20/21 14:09 91 H 100 05/20/21 14:04 82 99 05/20/21 13:59 83 99 05/20/21 13:58 88 101/64 05/20/21 13:54 77 99 05/20/21 13:49 98 H 100 05/20/21 13:44 80 100 05/20/21 13:39 78 100 05/20/21 13:34 76 100 05/20/21 13:29 74 100 05/20/21 13:28 77 103/58 05/20/21 13:24 73 10/11/20 13:19 80 10/11/20 13:14 71 10/11/20 13:09 68 10/11/20 13:04 79 10/11/20 12:59 75 106/56 10/11/20 12:54 71 10/11/20 12:49 74 10/11/20 12:44 69 10/11/20 12:39 78 10/11/20 12:34 72 10/11/20 12:29 72 101/52 10/11/20 12:24 70 10/11/20 12:19 77 10/11/20 12:14 71 10/11/20 12:09 76 10/11/20 12:04 72 10/11/20 12:01 69 99/55 10/11/20 11:59 75 10/11/20 11:58 72 100/52 Intake and Output 10/11/20 10/12/20 10/12/20 23:59 07:59 15:59 Intake Total 1137.5 100 400 Output Total 600 150 Balance 1137.5 -500 250 Intake: IV 1137.5 100 PITOCin/NS 30 UNIT/500ML 137.5 30 units In 500 ml @ 4 mls/hr IV TITR ALOK Rx#: [id number] Oral 400 Output: Urine 600 150 Uretheral (Landis) 600 Void 150 Other: Total, Intake Amount 400 Total, Output Amount 150 # Voids Void 1 Estimated Blood Loss 1,000 - Exam Cardiovascular: Present: Regular rate Lungs: Present: Clear to auscultation Abdomen: Present: normal appearance, soft, normal bowel sounds. Absent: distention, tenderness, guarding, rigidity Uterus: Present: normal, firm, fundal height below umbilicus. Absent: bogginess, tenderness Extremities: Present: normal. Absent: tenderness Incision: Present: normal, dry, intact - Labs Labs: Abnormal lab results 10/12/20 10/12/20 Range/Units 00:23 10:25 WBC 17.0 H (4.5-11.0) K/mm3 RBC 3.30 L (3.65-5.03) M/mm3 Hgb 9.8 L 9.3 L (10.1-14.3) gm/dl Hct 29.2 L 27.2 L (30.3-42.9) % RDW 15.3 H (13.2-15.2) % Lymph % (Auto) 5.5 L (13.4-35.0) % Lipscomb % (Auto) 8.6 H (0.0-7.3) % Lymph # (Auto) 0.9 L (1.2-5.4) K/mm3 Lipscomb # (Auto) 1.5 H (0.0-0.8) K/mm3 Seg Neutrophils % 85.7 H (40.0-70.0) % Seg Neutrophils # 14.5 H (1.8-7.7) K/mm3
--- NOTE | 2020-10-12 15:07 | Post Anesthesia Evaluation ---
- Post Anesthesia Evaluation Patient Participated: Yes Airway Patent: Yes Stable Respiratory Function: Yes Nausea/Vomiting: No Temp > 96.8F: Yes Pain Manageable: Yes Adequeate Hydration: Yes Anesthesia Complications: No Block Receding Appropriately: Yes
[2020-10-12] MEDS: IBUPROFEN 800 MG TAB PO PRN (15:09)
[2020-10-13] MEDS: HYDROcodone/ACETAMINOPHEN 5-325 MG TAB PO PRN ×2 (00:51→12:50)
[2020-10-13] MEDS ORDERED: SIMETHICONE 80 MG CHEW TAB PO PRN (06:19)
--- NOTE | 2020-10-13 06:23 | Progress Note ---
Assessment and Plan A: /postop day 2 S/P primary LTCS. Anemia. P: Continue iron supplementation. Advised patient to ambulate. CBC this AM. Subjective - Subjective Date of service: 10/13/20 Principal diagnosis: day 2 S/P primary LTCS Interval history: Passing gas. Ambulating well. Voiding without difficulty. Patient reports: appetite normal, voiding normally, pain well controlled, flatus, ambulating normally, no dizzy ambulation, no nauseated Rogers: doing well, nursing well Objective - Vital Signs Latest vital signs: Vital Signs Temp Pulse Resp BP Pulse Ox 10/13/20 00:51 12 10/13/20 00:00 98.6 F 66 16 114/78 10/12/20 16:30 97.9 F 77 20 117/56 98 10/12/20 08:49 98 F 81 19 113/67 95 Intake and Output 10/12/20 10/12/20 10/13/20 15:59 23:59 07:59 Intake Total 900 300 300 Output Total 950 Balance -50 300 300 Intake: Oral 700 Intake, Free Water 200 300 300 Output: Urine 950 Void 950 Other: Total, Intake Amount 300 Total, Output Amount 400 # Voids Void 3 1 1 - Exam Cardiovascular: Present: Regular rate Lungs: Present: Clear to auscultation Abdomen: Present: normal appearance, soft, normal bowel sounds. Absent: distention, tenderness, guarding, rigidity Uterus: Present: normal, firm, fundal height below umbilicus. Absent: bogg iness, tenderness Extremities: Present: normal. Absent: tenderness Incision: Present: normal, dry, intact - Labs Labs: Abnormal lab results 10/12/20 Range/Units 10:25 Hgb 9.3 L (10.1-14.3) gm/dl Hct 27.2 L (30.3-42.9) %
[2020-10-13 07:43] LABS: Basophils % (Auto) 0.2 % (0.0-1.8); Eosinophils # (Auto) 0.1 K/mm3 (0.0-0.4); Eosinophils % (Auto) 0.4 % (0.0-4.3); Hematocrit 25.6 % (30.3-42.9); Hemoglobin 8.5 gm/dl (10.1-14.3); Lymphocytes % (Auto) 18.5 % (13.4-35.0); Mean Corpuscular HGB Conc 33 % (30-34); Mean Corpuscular Volume 88 fl (79-97); Monocytes # (Auto) 1.5 K/mm3 (0.0-0.8); Monocytes % (Auto) 9.1 % (0.0-7.3); Platelet Count 198 K/mm3 (140-440); Red Blood Count 2.89 M/mm3 (3.65-5.03); Red Cell Distribution Width 15.3 % (13.2-15.2)
[2020-10-13] MEDS: FERROUS SULFATE 325 MG TAB PO SCH (10:57)
[2020-10-13] MEDS ORDERED: diphenhydrAMINE 50 MG/ML VIAL IV ONE (12:58)
[2020-10-13] MEDS ORDERED: dexAMETHasone 20 MG in SODIUM CHLORIDE 0.9% 50 ML IV ONE (13:30)
[2020-10-13] MEDS ORDERED: DEXAMETHASONE 4 MG TAB PO ONE (14:00)
[2020-10-13] MEDS ORDERED: diphenhydrAMINE 50 MG CAP PO NR (22:00)
[2020-10-13] MEDS: IBUPROFEN 800 MG TAB PO PRN (23:04)
[2020-10-14] MEDS: IBUPROFEN 800 MG TAB PO PRN (06:29)
[2020-10-14 09:03] VITALS: BP 114/68
[2020-10-14] MEDS ORDERED: oxyCODONE /ACETAMINOPHEN 5-325MG TAB PO PRN (10:47)
[2020-10-14] MEDS: FERROUS SULFATE 325 MG TAB PO SCH (11:00)
--- NOTE | 2020-10-14 11:26 | Progress Note ---
Assessment and Plan A: day 3 S/P primary LTCS. Anemia. P: Discharge patient home today. Discussed with patient /postop discharge instructions and warning signs. Care of incision and activity restrictions discussed with patient. Advised patient to avoid intercourse, lifting, housework, driving, tub baths (patient may take showers). Advised patient to continue taking her vitamin and iron supplements at home. Advised patient to follow up at [facility] in 2 days. Patient voiced understanding of all instructions. Subjective - Subjective Date of service: 10/14/20 Principal diagnosis: day 3 S/P primary LTCS Interval history: Patient desires discharge home today. Patient reports: appetite normal, voiding normally, pain well controlled, flatus, ambulating normally, no dizzy ambulation, no bowel movement, no nauseated Arley: doing well Objective - Vital Signs Latest vital signs: Vital Signs Temp Pulse Resp BP BP Pulse Ox 10/14/20 08:14 98 F 82 20 114/68 97 10/14/20 07:29 18 10/14/20 06:29 18 10/14/20 00:46 98.7 F 85 20 126/79 97 10/14/20 00:04 18 10/13/20 23:04 18 10/13/20 16:07 98.2 F 80 19 115/62 98 Intake and Output 10/13/20 10/14/20 10/14/20 23:59 07:59 15:59 Intake Total 480 360 Balance 480 360 Intake: Oral 360 Intake, Free Water 480 Other: Total, Intake Amount 360 # Voids Void 1 1 - Exam Cardiovascular: Present: Regular rate Lungs: Present: Clear to auscultation Abdomen: Present: normal appearance, soft, normal bowel sounds. Absent: distention, tenderness, guarding, rigidity Uterus: Present: normal, firm, fundal height below umbilicus. Absent: bogginess, tenderness Extremities: Present: normal. Absent: tenderness, edema Incision: Present: normal, dry, intact
--- NOTE | 2020-10-14 11:31 | Discharge Summary ---
Providers - Providers Date of Admission: 10/10/20 23:43 Date of discharge: 10/14/20 Attending physician: ILA LANDIN Primary care physician: ILA LANDIN Hospitalization Reason for admission: induction of labor Delivery: Procedure: primary low transverse Incision: normal, dry, intact Other procedures: none Discharge diagnosis: IUP at term delivered baby: male Pertinent studies: Labs Hospital course: Stable hospital course. Condition at discharge: Good Disposition: DC-01 TO HOME OR SELFCARE - Discharge Diagnoses (1) Term delivered Status: Acute (2) Anemia Status: Acute Plan - Discharge Medications Prescriptions: Ibuprofen [Motrin] 600 mg PO Q8H PRN #60 tablet PRN Reason: Pain oxyCODONE /ACETAMINOPHEN [Percocet 5/325] 1 tab PO Q6HR PRN #20 tablet PRN Reason: Pain - Provider Discharge Summary Activity: routine, no sex for 6 weeks, no heavy lifting 4 weeks, no strenuous exercise Diet: routine Instructions: routine Additional instructions: Continue taking your vitamin and iron supplement at home. Follow up at [facility] in 2 days. Call your doctor immediately for: * Fever > 100.5 * Heavy vaginal bleeding ( >1 pad per hour) * Severe persistent headache * Shortness of breath * Reddened, hot, painful area to leg or breast * Drainage or odor from incision. * Keep incision clean and dry at all times and follow doctor's instructions regarding bathing/showering - Follow up plan Follow up: ILA LANDIN MD [Primary Care Provider] - 48 Hours
== END 2020-10-14 16:30 | disposition home or self-care (01) | DRG 765 ==
LOC: TRG 21:17 → LD 21:18 → TRG 23:42 → LD 23:43 → OB 10-12 01:09
PROVIDERS: ADMIT Obstetrics & Gynecology; ATTEND Obstetrics & Gynecology
PROC: 10D00Z1 Extraction of Products of Conception, Low, Open Approach (ICD-10-PCS; principal; 2020-10-14)
PROC: 3E0R3BZ Introduction of Anesthetic Agent into Spinal Canal, Percutaneous Approach (ICD-10-PCS; 2020-10-14)
DX: O32.4XX0 Maternal care for high head at term, not applicable or unspecified (principal); D62 Acute posthemorrhagic anemia; O99.354 Diseases of the nervous system complicating childbirth; E66.01 Morbid (severe) obesity due to excess calories; Z37.0 Single live birth; O61.0 Failed medical induction of labor; Z20.822 Contact with and (suspected) exposure to COVID-19; Z3A.40 40 weeks gestation of pregnancy; Z82.49 Family history of ischemic heart disease and other diseases of the circulatory system; Z83.3 Family history of diabetes mellitus; Z80.3 Family history of malignant neoplasm of breast; Z79.899 Other long term (current) drug therapy; G40.909 Epilepsy, unspecified, not intractable, without status epilepticus; O90.81 Anemia of the puerperium
CPT/HCPCS: 36415; 85014; 85018; 85025; 85027; 86850; 86900; 86901; G0378; A6250; J0690; J1200; J1885; J2270; J2590; J2765; J3105; J7120; J8540; U0003